=== PATIENT | male | born 1990 | race Caucasian/White ===

== ENCOUNTER 2016-07-06 16:10 | Emergency (ER) | payer OTHER ==
[2016-07-06] MEDS ORDERED: KETOROLAC 30 MG/ML VIAL ONE (18:16)
== END 2016-07-06 20:34 | disposition home or self-care (01) ==
LOC: ER 16:10
DX: M79.1 Myalgia (principal); J02.0 Streptococcal pharyngitis; Z72.0 Tobacco use
CPT/HCPCS: 36415; 71020; 80053; 81003; 85025; 86618; 86757; 87798; 87801; 87804; 87880; 96374